=== PATIENT | female | born 1970 | race Two or more races ===

== ENCOUNTER → 2024-11-23 | Outpatient (CLI) | payer OTHER, SELFPAY ==
--- NOTE | 2024-11-23 08:00 | XR_ITS ---
Examination: Screening digital mammography, bilateral Computer aided detection 3-D breast Tomosynthesis, bilateral Date and time of exam: November 23, 2024 0804 hours Compared to mammograms dating to December 05, 2020 Indication: Screening Technique: Nonmagnified MLO, CC views of the breasts to been obtained, reconstructed from 3-D Tomosynthesis images. R2 computer aided detection program utilized for evaluation of suspicious masses and/or abnormal calcifications. 3-D Tomosynthesis images obtained. Findings: The breasts are heterogeneously dense, which may obscure small masses Interval 10 mm oval mass 9:00 position left breast Benign calcifications Impression: BI-RADS Category 0: Incomplete: Additional imaging evaluation 10 mm oval mass circumscribed 9:00 position left breast, recommend follow-up spot tomographic views of this mass as well as bilateral breast sonography to complete the workup
== END | disposition home or self-care (01) ==
LOC: CDIM 07:53
PROVIDERS: Referring Provider Physician Assistant; Visit Provider Physician Assistant
DX: Z12.31 Encounter for screening mammogram for malignant neoplasm of breast (principal); N63.25 Unspecified lump in the left breast, overlapping quadrants; R92.1 Mammographic calcification found on diagnostic imaging of breast
CPT/HCPCS: 77063; 77067

== ENCOUNTER → 2025-01-11 | Outpatient (CLI) | payer OTHER, SELFPAY ==
--- NOTE | 2025-01-11 10:30 | XR_ITS ---
Examination: Breast ultrasound complete, bilateral Date and time of exam: January 11, 2025 0958 hrs. Indications: Mammogram November 23, 2024 10 mm circumscribed oval mass 9:00 position left breast Technique: Real-time grayscale ultrasonographic imaging bilateral breasts, including all 4 quadrants as well as nipple retroareolar and axillary regions. Findings: 7:00 cyst 5 x 8 mm 9:00 oval mass with breast biopsy marker 15 x 17 mm Impression: Mild interval enlargement of the 9:00 nodule compared to ultrasound April 23, 2024, recommend continued 6 month follow-up left breast sonography
== END | disposition home or self-care (01) ==
LOC: CDIM 09:44
PROVIDERS: Referring Provider Physician Assistant; Visit Provider Physician Assistant
DX: N63.25 Unspecified lump in the left breast, overlapping quadrants (principal)
CPT/HCPCS: 76641

== ENCOUNTER → 2025-02-04 | Outpatient (CLI) | payer OTHER, SELFPAY ==
--- NOTE | 2025-02-04 14:45 | XR_ITS ---
Examination: Diagnostic digital mammography, unilateral, left Computer aided detection 3-D breast Tomosynthesis, unilateral Date and time of exam: February 04, 2025 1422 hours INDICATIONS: Mammogram November 23, 2024 10 mm oval mass 9:00 position left breast Technique: Nonmagnified MLO, CC views of the left breast have been obtained, reconstructed from 3-D Tomosynthesis images. R2 computer aided detection program utilized for evaluation of suspicious masses and/or abnormal calcifications. 3-D Tomosynthesis images obtained. Findings: The breast is heterogeneously dense, which may obscure small masses Focal asymmetry remains 9:00 position left breast with adjacent to breast biopsy marker Impression: BI-RADS category 3: Probably benign findings One additional 6 month left mammogram follow-up is needed to document stability of focal asymmetry above
== END | disposition home or self-care (01) ==
LOC: CDIM 13:57
PROVIDERS: Referring Provider Physician Assistant; Visit Provider Physician Assistant
DX: R92.332 Mammographic heterogeneous density, left breast (principal); N64.89 Other specified disorders of breast
CPT/HCPCS: 77061; 77065; G0279

== ENCOUNTER → 2025-09-03 | Outpatient (CLI) | payer OTHER, SELFPAY ==
--- NOTE | 2025-09-03 08:15 | XR_ITS ---
Examination: Breast ultrasound, unilateral, left complete Date and time of exam: September 03, 2025, 0840 hours INDICATION: Family history of breast cancer, mammogram 8.3 2024 focal asymmetry left breast 9 o'clock position Technique: Real-time lindsay scale ultrasonographic imaging performed left breast including all 4 quadrants as well as nipple retroareolar and axillary region. Findings: 2:00 cyst 7 x 6 mm 8-9 o'clock nodule lobular margins with breast biopsy marker 16 x 6 x 14 mm IMPRESSION: BI-RADS Category 3: Probably benign findings An additional 6-month left breast sonogram follow-up is needed to document stability of 8:00 nodule described above
--- NOTE | 2025-09-03 08:45 | XR_ITS ---
Examination: Diagnostic digital mammography, unilateral, left Computer aided detection 3-D breast Tomosynthesis, unilateral Date and time of exam: September 03, 2025, 0852 hours INDICATIONS: Mammogram 8.3 2024 focal asymmetry 9 o'clock position left breast with adjacent breast biopsy marker Technique: Nonmagnified MLO, CC views of the left breast have been obtained, reconstructed from 3-D Tomosynthesis images. R2 computer aided detection program utilized for evaluation of suspicious masses and/or abnormal calcifications. 3-D Tomosynthesis images obtained. Findings: The breast is heterogeneously dense, which may obscure small masses 8:00 nodule left breast 15 mm, noted on left breast sonogram today Impression: BI-RADS category 3: Probably benign findings 1 additional 6-month left mammogram follow-up is needed
== END | disposition home or self-care (01) ==
LOC: CDIM 08:19
PROVIDERS: PCP Physician Assistant; Referring Provider Physician Assistant; Visit Provider Physician Assistant
DX: R92.332 Mammographic heterogeneous density, left breast (principal); N63.24 Unspecified lump in the left breast, lower inner quadrant
CPT/HCPCS: 76641; 77061; 77065; G0279